=== PATIENT | female | born 1985 | race American Indian/Alaskan Native ===

== ENCOUNTER 2018-04-01 15:32 | Emergency (ER) | payer MEDICAID ==
[2018-04-01 15:52] VITALS: BMI 36.9
[2018-04-01 16:01] VITALS: RESP 18
--- NOTE | 2018-04-01 16:59 | ED PDOC ---
Arrival/HPI - General Chief Complaint: Back Pain Time Seen by Provider: 04/01/18 15:55 Historian: Patient - History of Present Illness Narrative History of Present Illness (Text): 33 year old female with no significant past medical history presents to the emergency department complaining of back pain x 2 days. Patient attributes the back pain to lifting heavy cabinet 4 days ago however she did not experience any back pain until 2 days later. States pain is located in her lower back and worse with twisting and bending however she also is experiencing thoracic back pain worse when taking deep breaths, R>L. Associated chills, tactile fever, shortness of breath, and intermittent chest discomfort while coughing. Denies headache, dizziness, diaphoresis, palpitations, jaw pain, neck pain, abdominal pain, nausea, vomiting, urinary symptoms, weakness, numbness, paresthesias, or any other associated symptoms. Past Medical History - Provider Review Nursing Documentation Reviewed: Yes - Infectious Disease Hx of Infectious Diseases: None - Psychiatric Hx Substance Use: No - Surgical History Hx Section: Yes (x2) - Anesthesia Hx Anesthesia: Yes Hx Anesthesia Reactions: No Hx Malignant Hyperthermia: No Family/Social History - Physician Review Nursing Documentation Reviewed: Yes Family/Social History: No Known Family HX Smoking Status: Never Smoked Hx Alcohol Use: No Hx Substance Use: No Allergies/Home Meds Allergies/Adverse Reactions: Allergies No Known Allergies Allergy (Verified 04/02/18 07:55) Review of Systems - Physician Review All systems were reviewed & negative as marked: Yes - Review of Systems Constitutional: Normal Eyes: Normal. absent: Vision Changes ENT: Normal Respiratory: SOB, Cough. absent: Sputum, Wheezing Cardiovascular: Normal. absent: Chest Pain, Palpitations Gastrointestinal: Normal. absent: Abdominal Pain, Nausea, Vomiting Genitourinary Female: Normal. absent: Dysuria, Frequency Musculoskeletal: Back Pain. absent: Neck Pain Skin: Normal. absent: Rash, Cellulitis Neurological: Normal. absent: Headache, Dizziness, Focal Weakness Endocrine: Normal. absent: Diaphoresis Hemo/Lymphatic: Normal Psychiatric: Normal Physical Exam Vital Signs Reviewed: Yes Vital Signs Temp Pulse Resp BP Pulse Ox 04/01/18 15:54 98.7 F 92 H 18 147/98 H 97 Temperature: Afebrile Blood Pressure: Hypertensive Pulse: Regular Respiratory Rate: Other (Patient taking short shallow breaths secondary to pleuritic pain) Appearance: Positive for: Well-Appearing, Non-Toxic, Comfortable Pain Distress: None Mental Status: Positive for: Alert and Oriented X 3 - Systems Exam Head: Present: Atraumatic, Normocephalic Pupils: Present: PERRL Extroacular Muscles: Present: EOMI Conjunctiva: Present: Normal Mouth: Present: Moist Mucous Membranes Pharnyx: Present: Normal. No: ERYTHEMA, EXUDATE Nose (External): Present: Atraumatic Nose (Internal): Present: Normal Inspection Neck: Present: Normal Range of Motion Respiratory/Chest: Present: Good Air Exchange, Rhonchi (right lower lobe). No: Respiratory Distress, Accessory Muscle Use, Wheezes, Retracting, Tachypneic Cardiovascular: Present: Regular Rate and Rhythm, Normal S1, S2, Peripheal Pulses Present. No: Murmurs Abdomen: Present: Normal Bowel Sounds. No: Tenderness, Distention, Peritoneal Signs Back: Present: Normal Inspection, Paraspinal Tenderness (right thoracic and lumbar ). No: CVA Tenderness, Midline Tenderness Upper Extremity: Present: Normal Inspection, Normal ROM, NORMAL PULSES, Neurovascularly Intact, Capillary Refill < 2s. No: Cyanosis, Edema, Tenderness, Swelling, Erythema, Deformity Lower Extremity: Present: Normal Inspection, NORMAL PULSES, Normal ROM, Capillary Refill < 2 s. No: CALF TENDERNESS, [place]'s Sign, Tenderness, Swelling Neurological: Present: GCS=15, CN II-XII Intact, Speech Normal, Motor Func Grossly Intact, Normal Sensory Function, Gait Normal Skin: Present: Warm, Dry, Normal Color. No: Rashes Psychiatric: Present: Alert, Oriented x 3, Normal Insight, Normal Concentration, Normal Affect, Normal Mood Medical Decision Making ED Course and Treatment: Initial Plan: * CBC, CMP * Troponin, Dimer * EKG * CXR * Toradol * Valium Dimer elevated. Discussed result with patient, as well as risks vs. benefit of CTA Chest. Patient consents to PE study. Patient reports almost complete resolution of pain after medications. 21:49 CTA Chest with Intravenous Contrast for Pulmonary Embolism FINDINGS: PULMONARY ARTERIES No evidence of central or segmental pulmonary embolism is seen. AORTA There is no evidence for aneurysm or dissection of the thoracic aorta. LUNGS Dense RLL consolidation is noted in the medial paraesophageal location compatible with pneumonia. PLEURAL SPACES No pleural effusion seen. No pneumothorax evident. HEART Normal heart size. No significant pericardial effusion. LYMPH NODES Mild non-specific bilateral hilar adenopathy possibly reactive. BONES No focal osseous abnormality or acute fracture. UPPER ABDOMEN Images of the upper abdomen are unremarkable. IMPRESSION: 1. Mild non-specific bilateral hilar adenopathy possibly reactive. 2. Dense RLL consolidation is noted in the medial paraesophageal location compatible with pneumonia. 3. No evidence of PE. Case discussed with ED attending Dr. Landaverde, who recommends Azithromycin 500mg here with prescription for 250mg x 4 days. Recommend followup with clinic or PMD for repeat CXR after completion of antibiotics. Patient requesting refill of her Ventolin inhaler. Plan of care discussed with patient, and strict instructions given regarding prescriptions, importance of follow up, and signs to return to Emergency Department, to include worsening back pain, chest pain, worsening SOB, headache, dizziness, or any other new/worsening symptoms. Patient verbalizes understanding of discussion. Patient A&Ox3, ambulating with steady gait, stable for discharge home. - Lab Interpretations Lab Results: 04/01/18 17:33 04/01/18 17:33 Lab Results 04/01/18 17:33: D-Dimer, Quantitative 315 H 04/01/18 17:33: Sodium 136, Potassium 3.6, Chloride 102, Carbon Dioxide 27, Anion Gap 10, BUN 9, Creatinine 0.7, Est GFR ( Amer) > 60, Est GFR (Non- Af Amer) > 60, Random Glucose 107, Calcium 9.6, Total Bilirubin 0.7, AST 21, ALT 26, Alkaline Phosphatase 70, Troponin I < 0.01, Total Protein 8.3, Albumin 4.3, Globulin 4.0, Albumin/Globulin Ratio 1.1 04/01/18 17:33: WBC 13.4 H, RBC 4.35, Hgb 13.1, Hct 39.7, MCV 91.3, MCH 30.1, MCHC 33.0, RDW 13.3, Plt Count 224, MPV 11.1 H, Gran % 80.0 H, Lymph % (Auto) 10.8 L, Stewart % (Auto) 8.9 H, Eos % (Auto) 0.1 L, Baso % (Auto) 0.2, Gran # 10.70 H, Lymph # (Auto) 1.4, Stewart # (Auto) 1.2 H, Eos # (Auto) 0.0, Baso # (Auto) 0.03 04/01/18 17:17: Urine Color Dark yellow, Urine Appearance Clear, Urine pH 6.5, Ur Specific [place] 1.015, Urine Protein 30 H, Urine Glucose (UA) Negative, Urine Ketones Negative, Urine Blood Small H, Urine Nitrate Negative, Urine Bilirubin Negative, Urine Urobilinogen 2.0 H, Ur Leukocyte Esterase Negative, Urine RBC 0 - 2, Urine WBC Negative, Ur Epithelial Cells 1 - 3, Urine Bacteria Trace I have reviewed the lab results: Yes - EKG Interpretation EKG Interpretation (Text): Rate 82; NSR; normal intervals; LVH; early repolarization; no STEMI or other signs of ischemia Interpreted by ED Physician: Yes Type: 12 lead EKG Comparison: No previous EKG avail. - Medication Orders Current Medication Orders: Diazepam (Valium) 5 mg PO ONCE ONE; Protocol Stop: 04/01/18 16:52 Ketorolac Tromethamine (Toradol) 60 mg IM STAT STA Stop: 04/01/18 16:52 Disposition/Present on Arrival - Present on Arrival Any Indicators Present on Arrival: No History of DVT/PE: No History of Uncontrolled Diabetes: No Urinary Catheter: No History of Decub. Ulcer: No History Surgical Site Infection Following: None - Disposition Have Diagnosis and Disposition been Completed?: Yes Diagnosis: Pneumonia Disposition: HOME/ ROUTINE Disposition Time: 21:15 Patient Plan: Discharge Condition: IMPROVED Discharge Instructions (ExitCare): Community-Acquired Pneumonia in Adults Additional Instructions: Take azithromycin daily x 4 days Use albuterol inhaler 2 puffs every 6 hours as needed Take flexeril every 8 hours as needed for pain Take ibuprofen every 8 hours as needed for pain Followup with PMD or clinic within 2 days and after antibiotic course for repeat imaging Return to ER for any new/worsening symptoms Prescriptions: Albuterol HFA [Ventolin HFA 90 mcg/actuation (8 g)] 2 puff IH Q6H PRN #60 puff PRN Reason: Cough Azithromycin 250 mg PO DAILY #4 tablet Cyclobenzaprine [Flexeril] 5 mg PO Q8H PRN #21 tab PRN Reason: Pain, Moderate (4-7) Ibuprofen [Motrin Tab] 600 mg PO Q8H PRN #30 tab PRN Reason: Pain, Moderate (4-7) Referrals: Elizabeth Roa MD [Primary Care Provider] - Follow up with primary Forms: [employer] ([place]), WORK NOTE
[2018-04-01 17:23] LABS: PH,URINE 6.5 (4.7-8.0); URINE BILIRUBIN NEGATIVE (NEGATIVE); URINE BLOOD SMALL (NEGATIVE); URINE GLUCOSE (UA) NEGATIVE (NEGATIVE); URINE LEUKOCYTE ESTERASE NEGATIVE Leu/uL (NEGATIVE); URINE PROTEIN 30 mg/dL (<30 mg/dL)
[2018-04-01 17:24] LABS: URINE APPEARANCE CLEAR (CLEAR); URINE COLOR DARK YELLOW (YELLOW)
[2018-04-01 17:35] LABS: URINE BACTERIA TRACE (NEG); URINE RBC 0 - 2 /hpf (0-2); URINE WBC NEGATIVE /hpf (0-6)
[2018-04-01 17:38] LABS: BASO # 0.03 K/mm3 (0.0-2.0); BASO % 0.2 % (0.0-3.0); EOS % 0.1 % (1.5-5.0); GRAN # 10.7 (1.4-6.5); HEMOGLOBIN 13.1 g/dL (12.0-16.0); LYMPH # 1.4 (1.2-3.4); LYMPH % 10.8 % (22.0-35.0); MEAN CELL VOLUME 91.3 fl (80.0-105.0); MEAN CORPUSCULAR HEMOGLOBIN 30.1 pg (25.0-35.0); MEAN PLATELET VOLUME 11.1 fl (7.0-11.0); MONO # 1.2 (0.1-0.6); MONO % 8.9 % (1.0-6.0); RBC 4.35 10^6/uL (3.5-6.1); RED CELL DISTRIBUTION WIDTH 13.3 % (11.5-14.5); WHITE BLOOD COUNT 13.4 10^3/uL (4.5-11.0)
[2018-04-01 17:47] LABS: ALB/GLOB RATIO 1.1 (1.1-1.8); ALBUMIN 4.3 g/dL (3.0-4.8); ALT/SGPT 26 U/L (7-56); AST/SGOT 21 U/L (14-36); BLOOD UREA NITROGEN 9 mg/dL (7-21); CALCIUM 9.6 mg/dL (8.4-10.5); GFR NON-AFRICAN AMERICAN > 60
[2018-04-01 17:58] LABS: TROPONIN I < 0.01 ng/mL
[2018-04-01] MEDS ORDERED: Iodixanol 320 MG/ML 100 ML BOTTLE IV ONE (18:33)
--- NOTE | 2018-04-01 18:40 | CARD ---
APPROVED REPORT Date of service: 04/01/2018 EKG Measurement Heart [id number] <Conclusion> Normal sinus rhythm Possible Left atrial enlargement Left ventricular hypertrophy early repolarization
[2018-04-01 21:21] VITALS: PULSE 82; TEMP 99.2; O2SAT 99
[2018-04-01 21:22] VITALS: BP 152/102
--- NOTE | 2018-04-02 09:53 | CT ---
Date of service: 04/01/2018 CTA chest PE protocol Indication: elevated D-dimer, SOB, pleuritic pain Technique: Contiguous axial images were obtained through the chest with intravenous contrast enhancement. Sagittal and coronal reconstructions were generated and reviewed. This CT exam was performed using 1 or more of the following dose reduction techniques: Automated exposure control, adjustment of the MAA and/or kV according to patient size, and/or use of iterative reconstruction technique. IV contrast: 100 mL Visipaque 320 IV. Radiation dose (DLP): 499.35 MGy-cm. Comparison: None available Findings: Visualized portions of the inferior thyroid gland appear heterogeneous, limited assessment due to streak artifact. The mediastinal and hilar vascular structures appear within normal limits. The heart appears within normal limits of size. There is suboptimal opacification of the pulmonary arteries limiting evaluation for pulmonary embolus. Given this limitation, there are no visible intraluminal filling defects within the central pulmonary arteries to suggest central pulmonary embolism. Dense right lower lobe consolidation consistent with pneumonia. No pleural effusion. No pneumothorax. Small hiatal hernia. Limited visualized portions of the upper abdomen appear grossly unremarkable. Mild degenerative changes of the spine. Impression: There is suboptimal opacification of the pulmonary arteries limiting evaluation for pulmonary embolus. Given this limitation, there are no visible intraluminal filling defects within the central pulmonary arteries to suggest central pulmonary embolism. 1.3 x 2.2 cm mass evident in the left breast of indeterminate etiology. Recommend correlation with physical exam and dedicated breast imaging. Dense right lower lobe consolidation consistent with pneumonia. Heterogeneous appearance of the inferior thyroid gland limited in the sesamoid due to streak artifact. Thyroid ultrasound may be considered as outpatient if indicated. Preliminary impression was provided by [facility]. Case was marked for PA review. Findings discussed with Dr. Jaquez on 04/02/18 at 9:47 a.m.
== END 2018-04-01 21:48 | disposition home or self-care (01) ==
LOC: ED 15:32 → MERGE 15:32 → ED 21:48
DX: J18.9 Pneumonia, unspecified organism (principal)
CPT/HCPCS: 71275; 80053; 81001; 84484; 85025; 85378; 93005; 96372; 99283; J1885; Q9967